=== PATIENT | male | born 1990 | race African-American/Black ===

== ENCOUNTER 2021-12-16 19:43 | Emergency (ER) | payer SELFPAY ==
[2021-12-16 20:07] VITALS: BP 118/71; PULSE 111; TEMP 98; BMI 24.7
[2021-12-16] MEDS ORDERED: DIPHTH,PERTUSS(ACELL),TET 0.5 ML DISP.SYRIN IM ONE ×2 (20:48→20:55)
[2021-12-16] MEDS ORDERED: LIDOCAINE 1%/EPI 1:100000 (20 ML MULTI DOSE VIAL) PNB ONE (20:48)
[2021-12-16] MEDS ORDERED: LIDOCAINE 1%/EPI 1:100000 (20 ML MULTI DOSE VIAL) ONE ×2 (20:54→20:55)
== END 2021-12-16 22:01 | disposition home or self-care (01) ==
LOC: JER 19:43
PROC: 0HQDXZZ Repair Right Lower Arm Skin, External Approach (ICD-10-PCS; principal; 2021-12-16)
DX: S51.011A Laceration without foreign body of right elbow, initial encounter (principal); S50.811A Abrasion of right forearm, initial encounter; X99.1XXA Assault by knife, initial encounter
CPT/HCPCS: 90715; 99282-25

== ENCOUNTER 2021-12-29 13:55 | Emergency (ER) | payer SELFPAY ==
[2021-12-29 14:16] VITALS: BP 117/80; PULSE 110; TEMP 97.9; BMI 24.7
== END 2021-12-29 15:34 | disposition home or self-care (01) ==
LOC: JERFT 13:55
DX: Z48.02 Encounter for removal of sutures (principal)
CPT/HCPCS: 99281-25